=== PATIENT | male | born 1995 | race Hispanic/Latino ===

== ENCOUNTER 2023-08-28 10:20 | Emergency (ER) | payer BC, MEDICAID ==
[~2023-08-28] VITALS: Ht 185.4 cm; Wt 83.9 kg
[2023-08-28] MEDS: IBUPROFEN 800 MG TAB PO ONE (10:31)
[2023-08-28] MEDS: OCTYL 2-CYANOACRYLATE 1 EACH TP SCH (10:32)
[2023-08-28] MEDS: TETANUS/DIPHTHERIA TOXOID [ADULT] 0.5 ML VIAL IM ONE (10:32)
[2023-08-28 11:34] VITALS: BP 141/62; PULSE 82; RESP 16
[2023-08-28] MEDS ORDERED: CEPH500B PO (12:09)
[2023-08-28] MEDS ORDERED: IBUP-2077 PO (12:09)
== END 2023-08-28 12:31 | disposition home or self-care (01) ==
LOC: EDH 10:20
DX: S05.31XA Ocular laceration without prolapse or loss of intraocular tissue, right eye, initial encounter (principal); Z79.899 Other long term (current) drug therapy; Y08.89XA Assault by other specified means, initial encounter; Y93.89 Activity, other specified; Y92.89 Other specified places as the place of occurrence of the external cause; Y99.8 Other external cause status
CPT/HCPCS: 12011; 70486; 90471; 90714